=== PATIENT | female | born 1990 | race Two or more races ===

== ENCOUNTER 2025-03-05 17:47 | Inpatient (IN) | payer MEDICAID, SELFPAY ==
[2025-03-05] VITALS (7 sets, daily range): BP systolic 96–140; BP diastolic 61–93; PULSE 78–129; RESP 16–19; TEMP 37–37.3; O2SAT 99–100; BMI 26.6
--- NOTE | 2025-03-05 17:54 | PC.NURSE ---
PT HERE WITH C/O NUMBNESS AND WEAKNESS TO LEFT ARM SINCE 1545 TODAY. ALSO C/O CHEST PAIN ON LEFT SIDE SINCE YESTERDAY. PT UNABLE TO LIFT UP LEFT ARM AND UNABLE TO KEEP LEFT ARM UP WHEN LIFTED BY NURSE. LEFT FACIAL DROOP NOTED AND SIGHT SLURRING OF SPEECH. DR. AUGUSTINE IN OLD TRIAGE ROOM TO TALK WITH PT
--- NOTE | 2025-03-05 17:58 | PC.NURSE ---
1743, AFTER BEING TOLD SYMPTOMS IN TRIAGE AND COMPLETING STROKE ASSESSMENT, THIS RN NOTIFIED CHARGE AND MD, PRIOR TO FINISHING TRIAGE, STROKE ALERT WAS CALLED AT [phone]
--- NOTE | 2025-03-05 17:59 | PC.NURSE ---
PT NOW HAVING C/O NUMBNESS AND WEAKNESS TO LEFT LEG WITH TRANSFERRING FROM WHEELCHAIR TO CT BED.
--- NOTE | 2025-03-05 18:00 | EKG_ITS ---
[facility] Test Date: 2025-03-05 Pat Name: ALON MCFARLANE Department: Room: - Gender: Female Business Development Officer: : 1990 Requested By: John Cantu Order Number: [id number] Reading MD: John Cantu Measurements Intervals [place] Rate: 115 P: 47 NE: 173 QRS: 12 QRSD: 84 T: -16 QT: 319 QTc: 442 Interpretive Statements SINUS TACHYCARDIA ABNORMAL RHYTHM ECG Compared to ECG 04/26/2018 20:11:05 Sinus rhythm no longer present /store/S0/[id number].pdf
--- NOTE | 2025-03-05 18:00 | XR_ITS ---
Examination: CT brain head without contrast. 2-D sagittal coronal reconstructions Date and time of exam:March 05, 2025, 1804 hours INDICATIONS: Stroke alert, onset left-sided body weakness upper and lower extremity beginning 2 hours ago CTDI: vol (mGy):50.2 DLP: (mGycm):1017 Technique: Multiple CT axial sections of the brain have been obtained, 5 mm slice thickness. Contrast has not been administered. 2-D sagittal, coronal reconstructions have been obtained Low dose protocols were performed. One or more of the following dose reduction techniques were used; automated exposure control, adjustment of the mA and/or KV according to patient size, use of iterative reconstruction technique. Findings: No significant ventricular enlargement. Intra-axial or extra-axial hemorrhage density is not seen. No mass effect or midline shift Basal cisterns are not remarkable. Fourth ventricle is midline. Cranial vault intact. Impression: Negative for acute hemorrhage, mass effect or midline shift As clinically warranted, consider brain MRI follow-up to assess for demyelinating disease, acute ischemic change
--- NOTE | 2025-03-05 18:00 | XR_ITS ---
Examination: CTA carotids with intravenous contrast CTA brain, head with intravenous contrast. 2-D sagittal, coronal reconstructions. 3-D reconstructions. Exam date and time: March 05, 2025, 1810 hours INDICATIONS: Stroke alert, onset left-sided body weakness beginning 2 hours ago CTDI: vol (mGy) 62.3 DLP: (mGycm) 510 Technique: Multiple CTA axial brain, head carotid images post intravenous contrast injection 75 cc, Isovue-370. 2-D sagittal, coronal reconstructions. 3-D reconstructions, 3-D post processing including vascular maximum intensity projection images. Low dose protocols were performed. One or more of the following dose reduction techniques were used; automated exposure control, adjustment of the mA and/or KV according to patient size, use of iterative reconstruction technique. Findings: No significant common carotid carotid bifurcation or internal carotid artery stenoses in the neck Codominant vertebral arteries in the neck with no critical stenoses Intracranial vertebral arteries basilar artery and posterior cerebral branches fill with double conclusions Juxtasellar supraclinoid portions internal carotid arteries, M1 segments middle cerebral arteries and middle cerebral artery trifurcation vessels fill as well as anterior cerebral arteries IMPRESSION: No significant neck arterial stenoses No cerebral large vessel arterial occlusions
--- NOTE | 2025-03-05 18:00 | PC.NURSE ---
TELENEUROLOGIST DR. FOUNTAIN TALK ASSESSING PT WHILE IN CT TELENEUROLOGIST TALKING WITH PT ABOUT TKN MEDICATION FOR STROKES. MD TALKING ABOUT RISKS AND BENEFITS AND TELLING PT SHE DOES NOT NEED TO DECIDE NOW BUT WILL NEED TO DECIDE SOON UE TO MEDICATION BEING TIME SENSITIVE. PT THINKING ABOUT MEDICATION
--- NOTE | 2025-03-05 18:01 | XR_ITS ---
Examination: AP chest single view TECHNIQUE: AP portable upright chest single view Date and time: March 05, 2025 1856 hours INDICATIONS: Chest pain and shortness of breath and injury days ago FINDINGS: Normal heart size. No pneumonia or pulmonary edema. Mild osteopenia IMPRESSION: No active disease
--- NOTE | 2025-03-05 18:05 | PC.NURSE ---
LKW 1545, LEFT ARM STARTING TINGLING FEELS LIKE LITTLE ANTS ALL OVER MY ARM , WITH LEFT ARM WEAKNESS, STATES SHE WAS TALKING ON THE PHONE AND HER TONGUE FELT WEIRD LIKE SHE COULDN'T SPEAK RIGHT. PT HAS LEFT SIDED FACIAL DROOP.
--- NOTE | 2025-03-05 18:11 | PD.EDNEURO ---
Neuro Symptoms Deficit-RME/HPI General Chief Complaint: Neuro Symptoms/Deficit Stated Complaint: CHEST PAIN, LEFT ARM TINGLING Time Seen by Provider: 03/05/25 17:59 Arrival date/time: 03/05/25 17:47 RME / HPI RME / HPI Narrative: This section includes all my notes and documentations, including HPI, PE, and ED course. John Mcbride MD HPI: 34 y/o female with Hx of Anxiety presents to ED c/o left arm numbness and tingling, left-sided facial droop, left arm weakness, and chest pain (9/10) x approximately 3 hours ago. LKWT is 3:45 PM. The chest pain started yesterday, over 24 hours ago. No speech or visual impairment. No other complaints. ROS: All negative except as documented in HPI. Physical Exam: General: Alert and oriented. No acute distress. Eyes: Conjunctivae and lids clear. EOMI. PERRL. ENT: No nasal congestion. Pharynx normal. Tympanic membrane normal bilaterally. Neck: Supple. No carotid bruit. No JVD. Heart: RRR. Lungs: No respiratory distress. Good air movement. No rhonchi, wheezing, rales. Chest: No tenderness. Abdomen: Soft and nontender. Legs: No clubbing, cyanosis, edema. Skin: Warm and dry. Neuro: Alert and oriented X 3. Cranial Nerves II-XII grossly intact. No peripheral motor deficits. I reviewed all diagnostic test results: My interpretation of the EKG is sinus rhythm with no acute ST?T changes. My interpretation of the chest x-ray is: NAD. My review of the Head CT report is NAD. My review of the Head/Neck CTA report is NAD. My review of the Chest/Abdomen/Pelvis CTA report is NAD. Blood tests unremarkable. At this point, diagnoses include: Chest pain, Stroke-like symptoms. Treatment here included: IV fluid, Aspirin, Plavix. I discussed the case with our telehealth neurologist. About the presentation and exam and diagnostics and treatments here. Patient declined TNK. Recommended admission for further care. I discussed the case with our hospitalist.? About the presentation and exam and diagnostics and treatments here.? And need of further care in the hospital.? Will accept the patient. John Mcbride MD Related Data Home Medications ?Medication ?Instructions ?Recorded ?Confirmed vits no.124-ferrous fum 1 tab PO QDAY 09/17/18 12/04/18 27 mg iron-folic acid 800 mcg tablet ( Vitamin) Allergies Allergy/AdvReac Type Severity Reaction Status Date / Time PORK MEAT/RASH Allergy Intermediate Anaphylaxis Uncoded 03/05/25 18:03 Review of Systems Review of Systems Systems Reviewed: All systems reviewed, normal except as documented Past Medical History Past Medical History REPRODUCTIVE: Positive Previous Pregnancies PSYCHO/SOCIAL: Positive Anxiety OTHER HISTORY: Positive Hospitalization (CHILDBIRTH) ED Exam Narrative Physical exam: Refer to HPI above Course Course Course Narrative: CXR is ordered for determining the etiology of shortness of breath. Quality Measures none Orders Category Date Time Status Bedside Blood Glucose NOW Care 03/05/25 18:00 Active COVID-19 Screening Questionnaire NOW Care 03/05/25 19:[address] Screening NOW Care 03/05/25 18:21 Active Voucher Clerk NOW Care 03/05/25 18:00 Active Continuous Pulse Oximetry NOW Care 03/05/25 18:00 Completed Decision to Admit X1 Care 03/05/25 19:47 Active EKG (ED ONLY) *Do not use* NOW Care 03/05/25 18:00 Completed In and Out Catheter NEEDED Care 03/05/25 18:00 Active Insert IV NOW Care 03/05/25 18:00 Active NIH Stroke Scale now Care 03/05/25 18:00 Active NPO NOW Care 03/05/25 18:00 Active Nurse Swallow Screen x1 Care 03/05/25 18:00 Active Consult to Neurology / Tele-Neurology Routine Cons 03/05/25 18:[address] angio chest abdomen pelvis Stat Exams 03/05/25 18:[address] angio stroke protocol Stat Exams 03/05/25 18:[address] stroke protocol Stat Exams 03/05/25 18:00 Completed EKG (ED Only) Stat Exams 03/05/25 18:00 Draft XR chest 1V portable Stat Exams 03/05/25 18:01 Completed Alcohol, Blood Medical Stat Lab 03/05/25 17:57 Completed Arterial Blood Gas Stat Lab 03/05/25 18:00 Ordered B-Type Natriuretic Peptide Stat Lab 03/05/25 17:57 Completed CBC Stat Lab 03/05/25 17:57 Completed Comprehensive Metabolic Panel Stat Lab 03/05/25 17:57 Completed Drug Screen,Urine Stat Lab 03/05/25 18:00 Ordered Free T4 (Free Thyroxine) Stat Lab 03/05/25 17:57 Completed Magnesium Stat Lab 03/05/25 17:57 Completed Partial Thromboplastin Time Stat Lab 03/05/25 17:57 Completed Prothrombin Time with INR Stat Lab 03/05/25 17:57 Completed TSH [Thyroid Stimulating Hormone] Stat Lab 03/05/25 17:57 Completed Troponin I Stat Lab 03/05/25 17:57 Completed Urinalysis Stat Lab 03/05/25 18:00 Ordered Aspirin Chew Med 03/05/25 18:51 Discontinued 324 mg PO X1 ONE Clopidogrel [Plavix] Med 03/05/25 18:51 Discontinued 300 mg PO X1 ONE Labetalol IV [Trandate IV] Med 03/05/25 18:00 Active 10 mg IVP Q15M PRN Ondansetron Inj [Zofran Inj] Med 03/05/25 18:00 Active 4 mg IVP Q4HR PRN Sodium Chloride 0.9% 1000 ml [Ns] 1,000 ml Med 03/05/25 18:00 Active IV Q10H Tenecteplase Inj [TNKase Inj] Med 03/05/25 18:33 Discontinued 50 mg .ROUTE .STK-MED ONE Oxygen Delivery NOW RT 03/05/25 18:00 Active Vital Signs Vital signs: Vital Signs Pulse Rate 129 H 03/05/25 17:55 Respiratory Rate 16 03/05/25 17:55 Blood Pressure 96/61 03/05/25 17:55 Pulse Oximetry (%) 100 03/05/25 17:55 Oxygen Delivery Method Room Air 03/05/25 17:55 Neuro Symptoms / Deficit MDM Narrative MDM Narrative:: Scribe Attestation: I, Mayi Vallecillo am scribing for and in the presence of Dr. Mcbride. Provider Notation: Although this document has been carefully reviewed, there may still be some phonetic and other typographical errors.? These errors are purely grammatical due to imperfections in the software program and should not be construed in any way to? compromise the substance of the patient's medical care during this visit. 34 y/o female with Hx of Anxiety presents to ED c/o left arm numbness and tingling, left-sided facial droop, and chest pain, 9/10 x approximately 3 hours. LKWT is 3:45 PM. Patient had no chest pain yesterday. No other complaints. Patient data External records reviewed:: [facility] previous records (No recent ED records available for review.) Clinical information provided by:: patient Social determinants that could affect healthcare access:: none Patient has the following chronic illnesses:: Anxiety How is presenting disease/condition affected by chronic disease/condition?: uneffected by Evaluation data The following diagnostics were reviewed and interpreted by me:: lab results, radiology exam(s) and EKG tracing(s) Lab and/or radiology exams considered but not ordered:: None Interpretation Summary: I reviewed all diagnostic test results: My interpretation of the EKG is sinus rhythm with no acute ST?T changes. My interpretation of the chest x-ray is: NAD. My review of the Head CT report is NAD. My review of the Head/Neck CTA report is NAD. My review of the Chest/Abdomen/Pelvis CTA report is NAD. Blood tests unremarkable. Medications / Prescriptions Medications or Prescriptions considered but not ordered:: None Medication administrations:: Medication Administration History Sodium Chloride (Ns) 1,000 mls @ 100 mls/hr IV Q10H SONDRA Stop: 04/04/25 17:59 Last Admin: 03/05/25 19:01 Dose: 100 mls/hr Documented By: DOMENICA Labetalol HCl (Labetalol Inj 5 Mg/Ml Vial 20 Ml) 10 mg IVP Q15M PRN PRN Reason: HYPER Ondansetron HCl (Ondansetron Inj 2 Mg/Ml Inj 2 Ml) 4 mg IVP Q4HR PRN PRN Reason: NAUSEA OR VOMITING Stop: 04/04/25 17:59 Discontinued Medications Aspirin (Aspirin 81 Mg Chew) 324 mg PO X1 ONE Stop: 03/05/25 18:52 Last Admin: 03/05/25 19:19 Dose: 324 mg Documented By: DOMENICA Clopidogrel Bisulfate (Clopidogrel Bisulfate 75 Mg Tablet) 300 mg PO X1 ONE Stop: 03/05/25 18:52 Last Admin: 03/05/25 19:17 Dose: 300 mg Documented By: DOMENICA Tenecteplase (Tenecteplase Inj 50 Mg Vial) Confirm Administered Dose 50 mg .ROUTE .STK-MED ONE Stop: 03/05/25 18:34 Last Admin: 03/05/25 19:32 Dose: Not Given Documented By: DOMENICA Non-Admin Reason: Patient Refused IV fluid, Aspirin, Plavix. Consultations Consultation(s) initiated? (list below): Yes Consultation #1 (Physician, Specialty, Details): I discussed the case with our telehealth neurologist. About the presentation and exam and diagnostics and treatments here. Patient declined TNK. Recommended admission for further care. Time: 18:00 Diagnosis Neuro Differential Diagnosis: carpal tunnel syndrome, convulsions, delirium, subarachnoid hemorrhage, peripheral neuropathy, cerebrovascular accident, multiple sclerosis and transient cerebral ischemia Most likely diagnosis given after review of the tests above:: Chest pain, Stroke-like symptoms Admission Indicated Admission indicated?: indicated Explain why admission is indicated or not indicated:: Chest pain, stroke-like symptoms Admission Request Was there a request for admission?: Yes Admission Attestation Admission request attestation: Discussed case with Hospitalist service regarding admission. Discussed patients ED course, exam findings, labs, and radiology results. The Hospitalist [agrees] to accept the patient for admission. Disposition Plan Disposition Plan: Admit Discharge Plan Plan Patient Disposition: Admit Acute Care w/in Hospital Prescriptions/Referrals Prescriptions/Med Rec: No Action Vitamin 27 mg iron- 800 mcg Tablet 1 tab PO QDAY Problem List Clinical Impression: Stroke-like symptoms, Chest pain Patient/Caregiver Discharge Instructions Print Language: Kenyan Stand Alone Forms: Estrella Award Info., Patient Portal Info Letter
--- NOTE | 2025-03-05 18:18 | PC.NURSE ---
ROLF ASH TALKING TO DR. AUGUSTINE ABOUT NEED FOR CT OF CHEST DUE TO C/O CHEST PAIN ALSO. WILL GET CT OF CHEST/ABD/PELVIS ALSO
--- NOTE | 2025-03-05 18:20 | XR_ITS ---
Examination: CTA chest, with intravenous contrast. CTA abdomen, with intravenous contrast. CTA pelvis, with intravenous contrast. 2-D sagittal and coronal reconstructions. 3-D reconstructions. Date and time of exam: March 05, 2025 1829 hours INDICATIONS: Upper and lower chest pain, shortness of breath, extremities weakness on the left side today CTDI vol (mgy) 10.1 DLP (MGycm) 588 Technique: Multiple CTA images, 2.0 mm slice thickness, obtained chest, abdomen, pelvis, with the high-resolution 64 slice scanner. 75 cc Isovue-370 is administered intravenously. Sagittal and coronal 2-D reconstructions are obtained. 3-D reconstructions, angiographic images are obtained. 3-D postprocessing, including vascular maximum intensity projections. Low dose protocols were performed. One or more of the following dose reduction techniques were used; automated exposure control, adjustment of the mA and/or KV according to patient size, use of iterative reconstruction technique. Findings: No thoracic aortic aneurysm dilatation or dissection Pulmonary artery opacification is not optimum, no pulmonary artery filling defects are noted No pneumonia, pulmonary edema or pleural disease No liver or splenic lesion No gallstones No pancreatic or adrenal mass No hydronephrosis Normal appendix Abdominal aorta is intact, nonenlarged node dissection No bowel obstruction Anteverted uterus with intrauterine device satisfactory position Urinary bladder is intact Osseous structures intact IMPRESSION: No thoracic aortic or abdominal aortic aneurysmal dilatation or dissection Negative for pulmonary artery emboli No pneumonia, pulmonary edema, pleural disease or pulmonary nodules Normal appendix No acute process in the abdomen or pelvis Given the patient's presentation, consider brain MRI MRA without contrast follow-up
--- NOTE | 2025-03-05 18:25 | PRELIM_ITS ---
CT scan of the head without intravenous contrast (axial sections with sagittal and coronal reformats) March 05, 2025 1803 hours Clinical History: Focal neuro deficit, stroke suspected Findings: No evidence of intracranial hemorrhage, mass effect or midline shift. The ventricles and CSF spaces are unremarkable. The calvarium is unremarkable. The mastoid air cells and the visualized paranasal sinuses are clear. Impression: No evidence of intracranial hemorrhage, mass effect or midline shift. If there are persistent clinical symptoms or additional clinical concerns, consider MRI. Report Electronically Signed By: Ketty Paulino 03/05/2025 6:24:47 PM [EST]
[2025-03-05 18:34] LABS: Basophils # (Auto) 0.1 Thou/mm3 (0.0-0.2); Basophils % (Auto) 1 % (0-2.5); Eosinophils # (Auto) 0.2 Thou/mm3 (0.0-0.5); Eosinophils % (Auto) 1 % (0-10); Hematocrit 35.2 % (36.0-46.0); Hemoglobin 11.6 g/dL (12.0-16.0); Immature Granulocytes % (Auto) 0 % (0-0); Immature Granulocytes Auto 0.02 Thou/mm3 (0.00-0.00); Lymphocytes # (Auto) 2.4 Thou/mm3 (1.0-4.8); Lymphocytes % (Auto) 20 % (10-50); Mean Corpuscular Hemoglobin 26.1 pg (25.0-35.0); Mean Corpuscular Volume 79 fL (80-100); Monocytes % (Auto) 8 % (0-12); Neutrophils # (Auto) 8.2 Thou/mm3 (1.8-7.7); Neutrophils % (Auto) 69 % (37-80); Nucleated Red Blood Cell % 0 /100 WBC (0); Platelet Count 368 Thou/mm3 (140-440); RDW Standard Deviation 42.8 fL (36.4-46.3); Red Blood Count 4.44 Miln/mm3 (4.00-5.20); White Blood Count 11.9 Thou/mm3 (3.6-11.0)
--- NOTE | 2025-03-05 18:45 | PC.NURSE ---
TELENEUROLOGIST TALKING WITH PT FOR LAST 10 MINUTES ABOUT HER SYMPTOMS AND HIS RECOMMENDATION ABOUT BEING GIVEN TNK FOR HER STROKE SYMPTOMS. DR. FOUNTAIN EXPLAINED RISKS AND BENEFITS TO PT MULTIPLE TIMES AND PT INITIALLY STATED I'M SCARED, THEN STARTED SHAKING HER HEAD NO. FINALLY PT STATED SHE DID NOT WANT THE MEDICATION. DR. FOUNTAIN TOLD PT THAT WITHOUT THE MEDICATION SHE MIGHT GET BETTER BUT THAT WITHOUT THE MEDICATION SHE COULD GET WORSE AND NOT RECOVER FROM CURRENT SYMPTOMS. PT CONTINUES TO REFUSE THE MEDICATION AND HAS BEEN TOLD THAT THE MEDICATION IS TIME SENSATIVE AND CAN NOT BE GIVEN AFTER A CERTAIN TIME. PT REFUSING TNK MEDICATION.
--- NOTE | 2025-03-05 18:57 | PD.TNEURO ---
Tele Neuro Consultation Consultation Date 03/05/25 Most Recent Vital Signs Last Vital Signs Pulse 111 H 03/05/25 18:48 Resp 18 03/05/25 18:41 BP 138/82 H 03/05/25 18:42 Pulse Ox 100 03/05/25 18:41 O2 Del Method Room Air 03/05/25 18:41 Consultation Narrative [facility] Tele[facility]urology Consult Services Patient Name:???Odessa Callahan Date of :???1990 Identification Number:??? Date of Service:???03/05/2025 17:52:37 Diagnosis:?I63.89 - Cerebrovascular accident (CVA) due to other mechanism ([facility]) Impression: ?34 y/o F, without significant medical history, presenting to hospital with chest pain, left-sided numbness and weakness, left-sided symptoms started at 3:45 PM. On examination, NIHSS 6 (mild left facial droop, reduced sensation throughout the left side, LUE drift to bed, LLE drift). NCHCT did not show acute abnormalities. I had lengthy discussion with patient about my concern for stroke, and treatment option of tenecteplase. We discussed the benefit of medication, which is an increased chance of recovery from potentially disabling stroke. We also discussed the risks of medication, including 5-6% risk of major hemorrhage, 2-4% risk of ICH, which could be life-threatening. Patient initially indecisive, and nervous about the risks of medication. We proceeded with CTA chest/abdomen/pelvis to exclude aortic dissection given her chest pain, along with CTA head/neck to exclude LVO. These studies on my review did not suggest aortic dissection or critical neurovascular abnormalities. I re-evaluated patient after studies, she continued to demonstrate left-sided deficits, discussed with her again about tenecteplase, benefits and risks as described above. Ultimately, patient declined medication due to the potential risk. I did discuss with her risks of not getting medication, including lower chance of recovery if this is a stroke, and even a chance that symptoms could worsen. She continued to decline the medication. I discussed with her that should she change her mind, to let someone know immediately. ? ?At this time, recommend admission to hospital for monitoring and further evaluation. Our recommendations are outlined below. Recommendations: ? Stroke/Telemetry Floor ? Neuro Checks ( Sign Out: ? Discussed with Emergency Department Provider Advanced Imaging:CTA Head and Neck Completed. LVO:No Patient is not a candidate for AJ Metrics: Last Known Well: 03/05/2025 15:45:00 Dispatch Time: 03/05/2025 17:52:37 Arrival Time: 03/05/2025 17:47:00 Initial Response Time: 03/05/2025 17:58:04Symptoms: left-sided weakness, numbness; chest pain. Initial patient interaction: 03/05/2025 18:05:12 NIHSS Assessment Completed: 03/05/2025 18:06:58Patient is not a candidate for Thrombolytic. Thrombolytic Medical Decision: 03/05/2025 18:46:54Patient was not deemed candidate for Thrombolytic because of following reasons: Patient/Family declined . CT Head: I personally reviewed all the CT images that were available to me and it showed: no acute intracranial abnormalities Primary Provider Notified of Diagnostic Impression and Management Plan on: 03/05/2025 18:51:02 History of Present Illness:Patient is a 34 year old Female. Patient was brought by private transportation with symptoms of left-sided weakness, numbness; chest pain. Patient is able to provide history. She reports onset of symptoms at 3:45 PM, at which time she began to experience, paresthesias of the left arm, which gradually worsened to weakness, later also experienced facial droop, while in the ER her left leg became weak. Also reports having chest pain through the day, and in general has had higher level of anxiety. ? Past Medical History: ?There is no history of Hypertension ?There is no history of Diabetes Mellitus ?There is no history of Hyperlipidemia ?There is no history of Atrial Fibrillation ?There is no history of Coronary Artery Disease ?There is no history of Stroke Medications: No Anticoagulant use? No Antiplatelet use Reviewed EMR for current medications Allergies:? Reviewed Social History: Drug Use: No Family History: There is no family history of premature cerebrovascular disease pertinent to this consultation ROS : 14 Points Review of Systems was performed and was negative except mentioned in HPI. Past Surgical History: There Is No Surgical History Contributory To Today?s Visit ? Examination: BP(96/61),?Pulse(129), 1A: Level of Consciousness - Alert; keenly responsive?+ 0 1B: Ask Month and Age - Both Questions Right?+ 0 1C: Blink Eyes & Squeeze Hands - Performs Both Tasks?+ 0 2: Test Horizontal Extraocular Movements - Normal?+ 0 3: Test Visual Brandon - No Visual Loss?+ 0 4: Test Facial Palsy (Use Grimace if Obtunded) - Minor paralysis (flat nasolabial fold, smile asymmetry)?+ 1 5A: Test Left Arm Motor Drift - Drift, hits bed?+ 2 5B: Test Right Arm Motor Drift - No Drift for 10 Seconds?+ 0 6A: Test Left Leg Motor Drift - Drift, hits bed?+ 2 6B: Test Right Leg Motor Drift - No Drift for 5 Seconds?+ 0 7: Test Limb Ataxia (FNF/Heel-[place]rev[place]) - No Ataxia?+ 0 8: Test Sensation - Mild-Moderate Loss: Less Sharp/More Dull?+ 1 9: Test Language/Aphasia - Normal; No aphasia?+ 0 10: Test Dysarthria - Normal?+ 0 11: Test Extinction/Inattention - No abnormality?+ 0 NIHSS Score:?6 NIHSS Free Text :?mild left lower facial droop ?reduced sensation through the left side Pre-Morbid Modified [place] Scale:0 Points = No symptoms at all Spoke with :?Dr. Mcbride This consult was conducted in real time using interactive audio and video technology. Patient was informed of the technology being used for this visit and agreed to proceed. Patient located in hospital and provider located at home/office setting. Patient is being evaluated for possible acute neurologic impairment and high probability of imminent or life-threatening deterioration. I spent total of 58 minutes providing care to this patient, including time for face to face visit via telemedicine, review of medical records, imaging studies and discussion of findings with providers, the patient and/or family. Dr Gilbert Garcia [facility] For Inpatient follow-up with [facility] physician please call [facility] at . As we are not an outpatient service for any post hospital discharge needs please contact the hospital for assistance. If you have any questions for the [facility] physicians or need to reconsult for clinical or diagnostic changes please contact us via [facility] at . ?
[2025-03-05 18:58] LABS: Alanine Aminotransferase 11 U/L (10-49); Albumin, Serum 4.8 gm/dL (3.5-5.0); Albumin/Globulin Ratio 1.7 (1.2-2.2); Alcohol, Blood Medical < 3.0 mg/dL (0-10.0); Alkaline Phosphatase 90 U/L (46-116); Anion Gap 13 (7-16); BUN/Creatinine Ratio 11 Ratio (12-20); Bilirubin,Total 0.3 mg/dL (0.3-1.2); Blood Urea Nitrogen 9 mg/dL (9-23); Calcium 9.3 mg/dL (8.3-10.6); Calcium (Corrected) 9.3 mg/dL (8.5-10.1); Carbon Dioxide 23.2 mMol/L (20.0-31.0); Chloride 106 mMol/L (98-107); Creatinine (Component) 0.8 mg/dL (0.6-1.3); Free T4 (Free Thyroxine) 1.22 ng/dL (0.89-1.76); Globulin 2.8 gm/dL (2.3-3.5); Glucose 97 mg/dL (74-106); Osmolality,Calculated 281 (275-295); Potassium 3.5 mMol/L (3.4-5.1); Sodium 142 mMol/L (136-145); Thyroid Stimulating Hormone 1.73 uIU/mL (0.55-4.78); Total Protein 7.6 gm/dL (5.7-8.2); Troponin I < 0.002 ng/mL (0.0-0.045); eGFR > 60 See Note
[2025-03-05] MEDS: SODIUM CHLORIDE 0.9% 1000 ML 1,000 ML 100 ML IV (19:01)
[2025-03-05 19:14] LABS: Partial Thromboplastin Time 30.2 Seconds (22.0-36.0); Prothrombin Time 10.6 Seconds (9.0-12.2)
[2025-03-05] MEDS: CLOPIDOGREL BISULFATE 75 MG TABLET 300 MG PO (19:17)
[2025-03-05 19:19] LABS: B-Type Natriuretic Peptide < 20 pg/mL (0-100)
[2025-03-05] MEDS: ASPIRIN 81 MG CHEW 324 MG PO (19:19)
[2025-03-05 20:44] LABS: Base Excess -2 (-3-3); HCO3 23 mEq/L (20-26); Inspired Oxygen, FIO2 21 %; O2 Saturation 98 % (91-98); PCO2 36 mmHg (32.0-48.0); PO2 86 mmHg (83-108); pH, Arterial 7.41 (7.35-7.45)
[2025-03-05 20:47] LABS: Allen Test Performed/OK; Puncture Site Right Radial
[2025-03-05 20:49] LABS: Collection Type, Urine Clean Catch
[2025-03-05 21:06] LABS: Amphetamine/Methamp Scrn,U Negative (Negative); Barbiturate Screen,Urine Negative (Negative); Benzodiazepines Screen,Urine Negative (Negative); Benzoylecgonine Screen, Ur Negative (Negative); Fentanyl Screen,Urine Negative (Negative); Opiate Screen,Urine Negative (Negative); THC Screen,Urine Negative (Negative)
[2025-03-05 21:15] LABS: Bilirubin,Urine Negative (Negative); Blood,Urine Negative (Negative); Clarity,Urine Clear (Clear/Hazy); Color,Urine Colorless (Lt Yel-Yel); Glucose, Urine Negative (Negative); Ketones,Urine Negative (Negative); Leukocyte Esterase,Urine Positive (Negative); Nitrite,Urine Negative (Negative); PH,Urine 7.5 (5.0-7.0); Protein,Urine Negative (Neg - Trace); RBC,Urine 5 /hpf (0-3); Specific Gravity,Urine 1.039 (1.001-1.035); Squamous Epithelial Cell,Urine 9 /hpf (0-5); Urobilinogen,Urine Negative mg/dL (0.0-1.0); WBC,Urine 164 /hpf (0-5)
--- NOTE | 2025-03-05 21:35 | ESHP_ITS ---
Documentation for date of: 03/05/25 HPI History of Present Illness Chief complaint: left sided weakness History of present illness: Patient is 34 years old female with past medical history of anxiety presented to the ED due to left-sided weakness and chest pain. Patient reported she started developing chest pain over the last several weeks and it worsened yesterday significantly. The chest pain is associated with anxiety, she cannot say what makes pain worse or better. 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 Stroke alert was called and patient was evaluated by teleneurology, she was in the window for tPA administration however refused due to potential side effects. She denies any drug use, alcohol use or tobacco use. She was previously prescribed medication for anxiety but discontinued herself due to unpleasant affect. She denies any prior history of similar symptoms. She denies any shortness of breath, abdominal pain, dysuria symptoms. On admission her blood pressure 96/61, pulse 129, respirations 16, temperature 99.2 ?F, oxygen saturation 100% on room air. Labs showed WBCs 11.9, hemoglobin 11.6, MCV 79, negative troponin. Urinalysis showed RBCs 5, WBCs 164, epithelial cells 9, positive leukocyte esterase. U tox was negative. Head CT, head neck CTA did not reveal any abnormalities. Chest x-ray was negative. Chest abdomen pelvis CTA was unremarkable. EKG showed sinus tachycardia at 115. Teleneuro was consulted and patient was admitted for further management and evaluation. NIHSS score 6. PMH: Anxiety. PSH: None. SH: Denies using drugs, smoking tobacco or drink alcohol. FH: Unremarkable. Allergies: NKA. Medications: None. Review of Systems Review of Systems Systems Reviewed: All systems reviewed, normal except as documented Exam Vital Signs Temp Pulse Resp BP Pulse Ox O2 Del Method 99.2 F 102 H 19 124/93 H 100 Room Air 03/05/25 19:47 03/05/25 19:47 03/05/25 19:47 03/05/25 19:47 03/05/25 19:47 03/05/25 19:47 Narrative Exam Gen: Well-developed and well-nourished female. HEENT: NCAT, PERRLA, EOMI, MMM, anicteric conjunctivae, tongue is deviated to the right however able to move into the left side when asked. CVS: normal S1 and S2. RRR. No M/R/G. Resp: CTA B/L. No rhonchi, rales, crackles or wheezing. Abd: soft, mild suprapubic tenderness, non-distended. BS+ in all 4 quadrants. MSK: Good ROM in BUE & BLE. No edema or rash. Neuro: CN II-XII grossly intact. Strength 5/5 in RUE & RLE. Strength 4/5 in LUE & LLE. Alert and oriented x3. Psych: Appears quiet and minimally engaged in conversation. Results: Labs 03/05/25 17:57 03/05/25 17:57 Labs: Short CBC 03/05/25 Range/Units 17:57 WBC 11.9 H (3.6-11.0) Thou/mm3 Hgb 11.6 L (12.0-16.0) g/dL Hct 35.2 L (36.0-46.0) % Plt Count 368 (140-440) Thou/mm3 BMP 03/05/25 17:57 Sodium 142 Potassium 3.5 Chloride 106 Carbon Dioxide 23.2 BUN 9 Creatinine 0.8 Glucose 97 Calcium 9.3 Cardiac Enzymes 03/05/25 Range/Units 17:57 Troponin I < 0.002 (0.0-0.045) ng/mL Liver Function 03/05/25 Range/Units 17:57 Total Bilirubin 0.3 (0.3-1.2) mg/dL ALT 11 (10-49) U/L Alkaline Phosphatase 90 (46-116) U/L Albumin 4.8 (3.5-5.0) gm/dL Urine 03/05/25 Range/Units 20:16 Urine Color Colorless A (Lt Yel-Yel) Urine Clarity Clear (Clear/Hazy) Urine pH 7.5 H (5.0-7.0) Ur Specific [place] 1.039 H (1.001-1.035) Urine Protein Negative (Neg - Trace) Urine Glucose (UA) Negative (Negative) ABG Interpretation ABG results: 03/05/25 20:24 ABG pH 7.41 ABG pCO2 36 ABG pO2 86 ABG HCO3 23 ABG O2 Saturation 98 ABG Base Excess -2 Quality Measures Quality Measures VTE prophylaxis Medications Home Medications and Allergies Home Medications ?Medication ?Instructions ?Recorded ?Confirmed ?Type fluoxetine 10 mg capsule mg 03/06/25 History hydroxyzine HCl 25 mg tablet mg 03/06/25 History Allergies Allergy/AdvReac Type Severity Reaction Status Date / Time PORK MEAT/RASH Allergy Intermediate Anaphylaxis Uncoded 03/05/25 18:03 Visit Medications Enoxaparin Sodium (Enoxaparin Sod Inj 40 Mg/0.4 Ml Syringe) 40 mg SC QDAY [facility]1983 Stop: 03/20/25 08:59 Sodium Chloride (Ns) 1,000 mls @ 100 mls/hr IV Q10H SONDRA Stop: 04/04/25 17:59 Last Admin: 03/05/25 19:01 Dose: 100 mls/hr Labetalol HCl (Labetalol Inj 5 Mg/Ml Vial 20 Ml) 10 mg IVP Q15M PRN PRN Reason: HYPER Ondansetron HCl (Ondansetron Inj 2 Mg/Ml Inj 2 Ml) 4 mg IVP Q4HR PRN PRN Reason: NAUSEA OR VOMITING Stop: 04/04/25 17:59 Discontinued Medications Aspirin (Aspirin 81 Mg Chew) 324 mg PO X1 ONE Stop: 03/05/25 18:52 Last Admin: 03/05/25 19:19 Dose: 324 mg Clopidogrel Bisulfate (Clopidogrel Bisulfate 75 Mg Tablet) 300 mg PO X1 ONE Stop: 03/05/25 18:52 Last Admin: 03/05/25 19:17 Dose: 300 mg Assessment & Plan Plan Patient is 34 years old female with past medical history of anxiety presented to the ED due to left-sided weakness and chest pain, was admitted for further management and evaluation. #Stroke rule out. #Left sided weakness. - presented due to sudden onset of left sided chest pain. - Head CT, head neck CTA did not reveal any abnormalities. - Stroke alert was called and patient was evaluated by teleneurology, she was in the window for tPA administration however refused due to potential side effects. - NIHSS score 6. - in the ED given loading dose aspirin and clopidogrel. - physical exam was inconsistent, her strength in left arm and leg was fluctuating between normal and mild weakness. Plan: - admitted to telemetry. - swallow eval, speech eval, physical therapy. - head of bed 30 degrees. - MRI stroke protocol. - in-house neurology consult ordered. #Chest pain. - On admission her blood pressure 96/61, pulse 129. - Troponin I negative, EKG showed sinus tachycardia with no ST changes. - Chest x-ray was negative. Chest abdomen pelvis CTA was unremarkable. - likely related to her anxiety. #Anxiety. - long standing anxiety, was previously prescribed medication (unknown) but self discontinued due to unpleasant side effects. #Microcytic anemia, mild. - Labs showed hemoglobin 11.6, MCV 79. - consider iron studies and possible iron supplement. #UTI. - Labs showed WBCs 11.9. Urinalysis showed RBCs 5, WBCs 164, epithelial cells 9, positive leukocyte esterase. - Positive suprapubic tenderness. Plan: - Ceftriaxone 1g IV QD. - urine and blood cultures ordered. FEN: regular after swallow eval. DVT prophylaxis: Lovenox. GI prophylaxis: None. Dispo: Telemetry. CODE STATUS: Full code. Plan of care discussed with attending Dr. Ramsey. Zheng Arenas MD, PGY 2. Disclaimer: This note was dictated by speech recognition. Minor errors in trim installer may be present due to voice recognition software. Attending Provider Attestation/Addendum I have examined the patient, reviewed labs and imaging findings, discussed the case with the resident(s), and reviewed entered orders. I agree with the plan of care as outlined in this note, with these additional summaries/recommendations: 34-year-old female with past medical history of anxiety, prediabetes presents to ED with chief complaint of chest pain and left-sided weakness including the face. Stroke alert was called and teleneuro recommended tPA however after detailed discussion patient declined. Recommended admission for further stroke workup. At the time my evaluation, patient still has left-sided facial weakness and upper and lower extremity weakness. Will admit patient for further stroke workup and management. Roland Ramsey MD
[2025-03-05] MEDS: cefTRIAXone/D5w 1gm IV premix 1 GM/50 ML BAG IV (22:35)
--- NOTE | 2025-03-05 23:56 | PC.NURSE ---
DR. COPELAND NOTIFIED PT FAIL NURSE SWALLOW SCREEN, MD WILL ORDER NPO.
[2025-03-06] VITALS (7 sets, daily range): BP systolic 98–125; BP diastolic 54–74; PULSE 69–92; RESP 11–17; TEMP 36.2–36.9; O2SAT 96–100
--- NOTE | 2025-03-06 | XR_ITS ---
Examinations: MRI Brain without intravenous contrast. MRA brain without intravenous contrast. MRA carotids without intravenous contrast 3-D vascular reconstructions Date and time of exam: March 06, 2025 1558 hrs. Indications: Onset left-sided body weakness today Technique: Multiple axial and sagittal images of the brain have been obtained MRA brain carotid images without contrast obtained, including 3-D postprocessing, vascular maximum intensity projection images Findings: Sellaturc[place] is not enlarged. The optic chiasm and infundibular stalk are not remarkable. Prepontine and interpeduncular cisterns are not enlarged. No localized enlargement of the medulla or andrea. Fourth ventricle and cerebellar tonsils normal in position. Subacute hemorrhage is not seen. Fourth ventricle is midline. Mass in the cerebellopontine angle region is not evident. 7th and 8th nerve complexes exhibits symmetry. Globes are symmetrical with no retro-orbital mass. Increased white matter signal not seen Diffusion-weighted images demonstrate no focus of restricted diffusion Mass-effect upon the ventricular system is not identified. MRA carotid images no significant stenoses. MRA brain images no large vessel occlusions Impression: Negative for acute hemorrhage, mass effect or midline shift No acute infarct No MR findings diagnostic for demyelinating disease No cerebral large vessel occlusions
[2025-03-06] MEDS: SODIUM CHLORIDE 0.9% 1000 ML 1,000 ML 100 ML IV ×2 (04:41→15:40)
[2025-03-06 05:46] LABS: Basophils # (Auto) 0.1 Thou/mm3 (0.0-0.2); Basophils % (Auto) 1 % (0-2.5); Eosinophils # (Auto) 0.1 Thou/mm3 (0.0-0.5); Eosinophils % (Auto) 1 % (0-10); Hematocrit 32.2 % (36.0-46.0); Hemoglobin 10.3 g/dL (12.0-16.0); Immature Granulocytes % (Auto) 0 % (0-0); Immature Granulocytes Auto 0.02 Thou/mm3 (0.00-0.00); Lymphocytes # (Auto) 2.2 Thou/mm3 (1.0-4.8); Lymphocytes % (Auto) 23 % (10-50); Mean Corpuscular Hemoglobin 25.9 pg (25.0-35.0); Mean Corpuscular Volume 81 fL (80-100); Monocytes # (Auto) 0.6 Thou/mm3 (0.0-0.8); Monocytes % (Auto) 7 % (0-12); Neutrophils # (Auto) 6.3 Thou/mm3 (1.8-7.7); Neutrophils % (Auto) 67 % (37-80); Nucleated Red Blood Cell % 0 /100 WBC (0); Platelet Count 279 Thou/mm3 (140-440); Red Blood Count 3.98 Miln/mm3 (4.00-5.20); White Blood Count 9.4 Thou/mm3 (3.6-11.0)
[2025-03-06 06:32] LABS: Alanine Aminotransferase 9 U/L (10-49); Albumin, Serum 4.3 gm/dL (3.5-5.0); Albumin/Globulin Ratio 1.9 (1.2-2.2); Alkaline Phosphatase 72 U/L (46-116); Anion Gap 11 (7-16); BUN/Creatinine Ratio 7 Ratio (12-20); Bilirubin,Total 0.5 mg/dL (0.3-1.2); Blood Urea Nitrogen 5 mg/dL (9-23); Carbon Dioxide 22.2 mMol/L (20.0-31.0); Chloride 107 mMol/L (98-107); Creatinine (Component) 0.7 mg/dL (0.6-1.3); Estimated Creatinine Clearance 113.6 mL/min (>60); Globulin 2.3 gm/dL (2.3-3.5); Glucose 100 mg/dL (74-106); Osmolality,Calculated 276 (275-295); Phosphorous 3.1 mg/dL (2.4-5.1); Potassium 3.6 mMol/L (3.4-5.1); Sodium 140 mMol/L (136-145); Total Protein 6.6 gm/dL (5.7-8.2); eGFR > 60 See Note
--- NOTE | 2025-03-06 08:28 | ECHO_ITS ---
Transthoracic Echo Report Ht (in): 65 Wt (lb): 165 Exam Location: Echo Lab Status: Inpatient Asbestos Shingle Inspector: LavellKierra younger Indications: Procedure Performed: BP: 162 / 61 HR: 86 Technical Quality: Technically difficult study MEASUREMENTS (Male / Female) Normal Values 2D ECHO LA Volume Index 14.2 cm?/m? 16 - 28 cm?/m? DOPPLER AV Peak Velocity 143.0 cm/s AV Peak Gradient 8.2 mmHg AV Mean Gradient 4.0 mmHg AV Velocity Time Integral 23.5 cm LVOT Peak Velocity 103.0 cm/s LVOT Peak Gradient 4.2 mmHg LVOT Velocity Time Integral 18.9 cm MV Area PHT 5.5 cm? Mitral E Point Velocity 90.2 cm/s Mitral A Point Velocity 74.7 cm/s Mitral E to A Ratio 1.2 LV E' Lateral Velocity 15.2 cm/s Mitral E to LV E' Lateral Ratio 5.9 LV E' Septal Velocity 12.0 cm/s Mitral E to LV E' Septal Ratio 7.5 FINDINGS Left Ventricle Normal left ventricular size, wall thickness, systolic function with no obvious regional wall motion abnormalities. Normal left ventricular diastolic filling pattern for age. The ejection fraction is visually estimated at 55-60%. Right Ventricle The right ventricle is normal in size and systolic function. Left Atrium The left atrium is normal by two-dimensional, color flow and Doppler imaging with no structural abnormalities, no thrombus formation present. Right Atrium The right atrium is normal by two-dimensional imaging, color flow and Doppler imaging with no structural abnormalities, no thrombus formation present. Atrial Septum The interatrial septum appears normal with no evidence of a shunt. Aorta The aorta is normal by two-dimensional, color flow and Doppler interrogation. Mitral Valve The mitral valve is normal by two-dimensional, color flow and Doppler interrogation. There is no significant mitral valve regurgitation, stenosis or prolapse. Aortic Valve The aortic valve is trileaflet and normal by two-dimensional, color flow and Doppler interrogation. There is no significant aortic valve regurgitation. Tricuspid Valve The tricuspid valve is normal by two-dimensional, color flow and Doppler interrogation. There is no significant tricuspid valve regurgitation. Pulmonic Valve The pulmonic valve is not well visualized. There is no significant pulmonic valve regurgitation. Vessels The pulmonary artery appears normal. The inferior vena cava pulmonary and hepatic veins appear normal. Pericardium The pericardium is normal by two-dimensional imaging. There is no significant pericardial effusion. CONCLUSIONS Indication: Stroke bubble study No evidence of PFO Negative bubble study Normal LV size and function. Normal left ventricular diastolic function. Estimated EF at 55-60%. RV is normal in size and systolic function. Delia Dunlap (Electronically Signed) Final Date: 08 March 2025 17:06
[2025-03-06] MEDS: ENOXAPARIN SOD INJ 40 MG/0.4 ML SYRINGE SC (08:30)
[2025-03-06] MEDS: cefTRIAXone/D5w 1gm IV premix 1 GM/50 ML BAG IV (08:30)
--- NOTE | 2025-03-06 08:30 | ESPR_ITS ---
<Statement entered by Ashley Thomas MD - 03/06/25 14:29> I Ashley Thomas MD reviewed the note and agree with the resident's assessment & plan with exceptions as below. I have personally reviewed labs, imaging, home meds/prior records, examined the patient, formulated and discussed management plan with the IM team. A 34-year-old F with history of anxiety presented with left-sided weakness and had a stroke alert however refused tPA. Currently neurological symptoms have resolved, CT head and CTA head and neck unremarkable however pending MRI and echocardiogram. Started on aspirin and high intensity statin therapy. Potential etiology likely related to TIA. Following MRI, plan to start on DAPT for 3 weeks in case of TIA. Will refer to cardiology on discharge for Holter monitor placement for potential arrhythmias. Documentation for date of: 03/06/25 Subjective Subjective Interval history: Patient was examined bedside this morning , no acute overnight event. Pending MRI of brain to rule out TIA, pending echo. Pending Dr. Aguilera's recommendation. Exam Vital Signs Temp Pulse Resp BP Pulse Ox O2 Del Method 97.5 F 74 17 99/62 100 Room Air 03/06/25 08:00 03/06/25 08:00 03/06/25 08:00 03/06/25 08:00 03/06/25 08:00 03/06/25 08:00 Narrative Exam GENERAL: Comfortable adult seen resting comfortably in hospital bed, no acute distress VITALS: All vitals were reviewed and the pulse ox is 98% on room air HEENT: Normocephalic, atraumatic. Pupils are equal and reactive. Oral mucosa is moist. NECK: Supple, nontender, no JVD CHEST: Symmetrical, atraumatic and with equal expansion ,Nontender on palpation CARDIOVASCULAR: Heart regular rhythm & rate. S1/S2. no murmur or gallop rub or extra beats. LUNGS: Clear to auscultation bilaterally with symmetrical chest rise. No laboring tachypnea or wheezing. No intercostal subcostal retraction. No rales and no rhonchi. ABDOMEN: Soft, flat, nontender to palpation, no guarding or rebound tenderness. Active and normal bowel sounds. EXTREMITIES:Moves all 4 extremities,No B/L LE edema. SKIN: Warm and dry, no jaundice or rashes noted. NEURO: Patient is AO x 3, Cranial nerves II through XII grossly intact. There is no focal neurologic deficits noted. PSYCHIATRIC: Patient is in normal mood, cooperative, no SI or HI or hallucinations. Objective Labs 03/06/25 05:25 03/06/25 05:25 Labs: Laboratory Results - last 24 hr 03/05/25 03/05/25 03/05/25 17:57 20:16 20:24 WBC 11.9 H RBC 4.44 Hgb 11.6 L Hct 35.2 L MCV 79 L MCH 26.1 MCHC 33.0 RDW Std Deviation 42.8 Plt Count 368 Neut % (Auto) 69 Lymph % (Auto) 20 [place] % (Auto) 8 Eos % (Auto) 1 Baso % (Auto) 1 Neut # (Auto) 8.2 H Lymph # (Auto) 2.4 [place] # (Auto) 1.0 H Eos # (Auto) 0.2 Baso # (Auto) 0.1 Immature Gran # (Auto) 0.02 H Absolute Nucleated RBC 0.00 Immature Gran % 0 Nucleated RBC % 0 PT 10.6 INR 1.0 APTT 30.2 Puncture Site Right Radial ABG pH 7.41 ABG pCO2 36 ABG pO2 86 ABG HCO3 23 ABG O2 Saturation 98 ABG Base Excess -2 FiO2 21 Sodium 142 Potassium 3.5 Chloride 106 Carbon Dioxide 23.2 Anion Gap 13 BUN 9 Creatinine 0.8 Estim Creat Clear Calc 98.0 eGFR > 60 BUN/Creatinine Ratio 11 L Glucose 97 Calculated Osmolality 281 Calcium 9.3 Corrected Calcium 9.3 Phosphorus Magnesium 2.0 Total Bilirubin 0.3 ALT 11 Alkaline Phosphatase 90 Troponin I < 0.002 B-Natriuretic Peptide < 20 Total Protein 7.6 Albumin 4.8 Globulin 2.8 Albumin/Globulin Ratio 1.7 TSH 1.73 Free T4 1.22 Ur Collection Type Clean Catch Urine Color Colorless A Urine Clarity Clear Urine pH 7.5 H Ur Specific [place] 1.039 H Urine Protein Negative Urine Glucose (UA) Negative Urine Ketones Negative Urine Blood Negative Urine Nitrite Negative Urine Bilirubin Negative Urine Urobilinogen (Auto) Negative Ur Leukocyte Esterase Positive Urine RBC 5 H Urine WBC 164 H Ur Squamous Epith Cells 9 H Urine Bacteria None Urine Opiates Screen Negative Urine Fentanyl Screen Negative Ur Barbiturates Screen Negative U Amphetamin/Meth Scrn Negative U Benzodiazepines Scrn Negative U Cocaine Metab Screen Negative U Marijuana (THC) Screen Negative Ethyl Alcohol < 3.0 03/06/25 05:25 WBC 9.4 RBC 3.98 L Hgb 10.3 L Hct 32.2 L MCV 81 MCH 25.9 MCHC 32.0 RDW Std Deviation 44.0 Plt Count 279 D Neut % (Auto) 67 Lymph % (Auto) 23 [place] % (Auto) 7 Eos % (Auto) 1 Baso % (Auto) 1 Neut # (Auto) 6.3 Lymph # (Auto) 2.2 [place] # (Auto) 0.6 Eos # (Auto) 0.1 Baso # (Auto) 0.1 Immature Gran # (Auto) 0.02 H Absolute Nucleated RBC 0.00 Immature Gran % 0 Nucleated RBC % 0 PT INR APTT Puncture Site ABG pH ABG pCO2 ABG pO2 ABG HCO3 ABG O2 Saturation ABG Base Excess FiO2 Sodium 140 Potassium 3.6 Chloride 107 Carbon Dioxide 22.2 Anion Gap 11 BUN 5 L Creatinine 0.7 Estim Creat Clear Calc 113.6 eGFR > 60 BUN/Creatinine Ratio 7 L Glucose 100 Calculated Osmolality 276 Calcium 9.0 Corrected Calcium 9.0 Phosphorus 3.1 Magnesium 2.0 Total Bilirubin 0.5 ALT 9 L Alkaline Phosphatase 72 Troponin I B-Natriuretic Peptide Total Protein 6.6 Albumin 4.3 D Globulin 2.3 Albumin/Globulin Ratio 1.9 TSH Free T4 Ur Collection Type Urine Color Urine Clarity Urine pH Ur Specific [place] Urine Protein Urine Glucose (UA) Urine Ketones Urine Blood Urine Nitrite Urine Bilirubin Urine Urobilinogen (Auto) Ur Leukocyte Esterase Urine RBC Urine WBC Ur Squamous Epith Cells Urine Bacteria Urine Opiates Screen Urine Fentanyl Screen Ur Barbiturates Screen U Amphetamin/Meth Scrn U Benzodiazepines Scrn U Cocaine Metab Screen U Marijuana (THC) Screen Ethyl Alcohol ABG Interpretation ABG results: 03/05/25 20:24 ABG pH 7.41 ABG pCO2 36 ABG pO2 86 ABG HCO3 23 ABG O2 Saturation 98 ABG Base Excess -2 Quality Measures Quality Measures VTE prophylaxis Assessment & Plan Assessment Current Active Medications: Generic Name Dose Route Start Last Admin Trade Name Freq PRN Reason Stop Dose Admin Aspirin 81 mg 03/06/25 09:00 Aspirin Ec 81 Mg Tabec PO 04/05/25 08:59 QDAY SONDRA Atorvastatin Calcium 40 mg 03/06/25 21:00 Atorvastatin Calcium 20 Mg Tablet PO 04/05/25 20:59 HS SONDRA Enoxaparin Sodium 40 mg 03/06/25 09:00 Enoxaparin Sod Inj 40 Mg/0.4 Ml Syringe SC 03/20/25 08:59 QDAY SONDRA Sodium Chloride 1,000 mls @ 100 mls/hr 03/05/25 18:00 03/06/25 04:41 Ns IV 04/04/25 17:59 100 mls/hr Q10H SONDRA Administration Ceftriaxone Sodium/Dextrose 1 gm in 50 mls @ 100 mls/hr 03/05/25 22:04 03/05/25 23:20 Rocephin/D5w 1gm Iv Premix IV 03/12/25 22:03 Infused QDAY SONDRA Infusion Labetalol HCl 10 mg 03/05/25 18:00 Labetalol Inj 5 Mg/Ml Vial 20 Ml IVP Q15M PRN HYPER Ondansetron HCl 4 mg 03/05/25 18:00 Ondansetron Inj 2 Mg/Ml Inj 2 Ml IVP 04/04/25 17:59 Q4HR PRN NAUSEA OR VOMITING Plan Patient is 34 years old female with past medical history of anxiety presented to the ED due to left-sided weakness and chest pain, was admitted for further management and evaluation. # TIA vs anxiety #Left sided weakness- resolved - presented due to sudden onset of left sided chest pain. - Head CT, head neck CTA did not reveal any abnormalities. - Stroke alert was called and patient was evaluated by teleneurology, she was in the window for tPA administration however refused due to potential side effects. - NIHSS score 6. - in the ED given loading dose aspirin and clopidogrel. - physical exam was inconsistent, her strength in left arm and leg was fluctuating between normal and mild weakness. - admitted to telemetry. - swallow eval, speech eval, physical therapy. - head of bed 30 degrees. - MRI stroke protocol. - in-house neurology consult ordered. 03/06/2025: no acute overnight event. Pending MRI of brain to rule out TIA, pending echo. Pending Dr. Aguilera's recommendation. Patient most likely had an anxiety attack as per her she has recently increased stress in her work. #Chest pain- resolved - On admission her blood pressure 96/61, pulse 129. - Troponin I negative, EKG showed sinus tachycardia with no ST changes. - Chest x-ray was negative. Chest abdomen pelvis CTA was unremarkable. - likely related to her anxiety. #Anxiety. - long standing anxiety, was previously prescribed medication (unknown) but self discontinued due to unpleasant side effects. #Microcytic anemia, mild. - Labs showed hemoglobin 11.6, MCV 79. - consider iron studies and possible iron supplement. #UTI. - Labs showed WBCs 11.9. Urinalysis showed RBCs 5, WBCs 164, epithelial cells 9, positive leukocyte esterase. - Positive suprapubic tenderness. Plan: - Ceftriaxone 1g IV QD. - urine and blood cultures pending FEN: regular after swallow eval. DVT prophylaxis: Lovenox. GI prophylaxis: None. Dispo: Telemetry. CODE STATUS: Full code. Case discussed with attending Dr. William Patel MD,PGY-3
[2025-03-06] MEDS: ASPIRIN EC 81 MG TABEC PO (09:13)
--- NOTE | 2025-03-06 14:36 | EKG_ITS ---
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
[2025-03-06 16:01] LABS: Troponin I < 0.002 ng/mL (0.0-0.045)
[2025-03-06] MEDS: ATORVASTATIN CALCIUM 20 MG TABLET 40 MG PO (20:30)
[2025-03-06] MEDS: ACETAMINOPHEN 325 MG TABLET 650 MG PO (23:56)
[2025-03-07] VITALS: BP 100/64; PULSE 67; PULSE 70; RESP 20; TEMP 36.8; O2SAT 98
[2025-03-07] MEDS: SODIUM CHLORIDE 0.9% 1000 ML 1,000 ML 100 ML IV (01:18)
--- NOTE | 2025-03-07 01:36 | PC.NURSE ---
Report given to Eden LAUREN MS. pt will be Med Tele to rm [id number].
[2025-03-07 04:00] VITALS: BP 102/60; PULSE 83; PULSE 85; RESP 16; TEMP 36.9; O2SAT 98
[2025-03-07 07:25] LABS: Basophils # (Auto) 0.1 Thou/mm3 (0.0-0.2); Basophils % (Auto) 1 % (0-2.5); Eosinophils # (Auto) 0.2 Thou/mm3 (0.0-0.5); Eosinophils % (Auto) 3 % (0-10); Hematocrit 33.2 % (36.0-46.0); Hemoglobin 10.4 g/dL (12.0-16.0); Immature Granulocytes % (Auto) 0 % (0-0); Immature Granulocytes Auto 0.02 Thou/mm3 (0.00-0.00); Lymphocytes # (Auto) 1.4 Thou/mm3 (1.0-4.8); Lymphocytes % (Auto) 22 % (10-50); Mean Corpuscular HGB Conc 31.3 g/dl (31.0-37.0); Mean Corpuscular Hemoglobin 26.4 pg (25.0-35.0); Mean Corpuscular Volume 84 fL (80-100); Monocytes # (Auto) 0.5 Thou/mm3 (0.0-0.8); Monocytes % (Auto) 8 % (0-12); Neutrophils # (Auto) 4.2 Thou/mm3 (1.8-7.7); Neutrophils % (Auto) 65 % (37-80); Nucleated Red Blood Cell % 0 /100 WBC (0); Platelet Count 288 Thou/mm3 (140-440); RDW Standard Deviation 46.4 fL (36.4-46.3); Red Blood Count 3.94 Miln/mm3 (4.00-5.20); White Blood Count 6.5 Thou/mm3 (3.6-11.0)
[2025-03-07 07:50] VITALS: PULSE 86; RESP 18; RESP 92
[2025-03-07 08:00] VITALS: BP 91/58; PULSE 80; PULSE 86; RESP 17; TEMP 36.6; O2SAT 97
[2025-03-07 08:04] LABS: Alanine Aminotransferase < 7 U/L (10-49); Albumin, Serum 3.9 gm/dL (3.5-5.0); Albumin/Globulin Ratio 1.6 (1.2-2.2); Alkaline Phosphatase 67 U/L (46-116); Anion Gap 10 (7-16); BUN/Creatinine Ratio 9 Ratio (12-20); Bilirubin,Total 0.5 mg/dL (0.3-1.2); Blood Urea Nitrogen 6 mg/dL (9-23); Calcium 8.6 mg/dL (8.3-10.6); Calcium (Corrected) 8.7 mg/dL (8.5-10.1); Carbon Dioxide 24.2 mMol/L (20.0-31.0); Chloride 110 mMol/L (98-107); Creatinine (Component) 0.7 mg/dL (0.6-1.3); Estimated Creatinine Clearance 170.6 mL/min (>60); Globulin 2.4 gm/dL (2.3-3.5); Glucose 96 mg/dL (74-106); Osmolality,Calculated 284 (275-295); Sodium 144 mMol/L (136-145); Total Protein 6.3 gm/dL (5.7-8.2); eGFR > 60 See Note
[2025-03-07] MEDS: ASPIRIN EC 81 MG TABEC PO (08:12)
[2025-03-07] MEDS: ENOXAPARIN SOD INJ 40 MG/0.4 ML SYRINGE SC (08:12)
[2025-03-07] MEDS: cefTRIAXone/D5w 1gm IV premix 1 GM/50 ML BAG IV (08:12)
--- NOTE | 2025-03-07 09:27 | PC.SS ---
Patient Odessa Callahan is a 34 Year old female admitted for Stroke R/O. SS made contact with patient at bedside? to complete initial and discuss discharge disposition. Role and reason for the contact was explained to Patient. Demographic information was verified.? Pt? identified her Sister, Teofilo Callahan as her surrogate decision maker [phone]. She is independent with all ADLs. Patient does not utilize any source of DME, or home O2. Patient?s choice of pharmacy is [facility]. At time of discharge patient will return home, family will provide transportation. Discharge plan: Home Next of Kin: Sister, TEOFILO Callahan PCP: Buddy Norton
--- NOTE | 2025-03-07 10:52 | PC.SS ---
SS follow up note; Patient will discharge back home today.
[2025-03-07 12:00] VITALS: BP 108/66; PULSE 86; RESP 18; TEMP 36.3; O2SAT 98
[2025-03-07] MEDS: ACETAMINOPHEN 325 MG TABLET 650 MG PO (12:28)
--- NOTE | 2025-03-07 15:48 | ESDS_ITS ---
<Statement entered by Tyrone Delacruz MD - 03/19/25 14:04> I reviewed above note and agree with findings and plans. I have also personally examined the patient with medicine team and went over assessment and plan with medical team including procurement intern and resident physician. Planned Discharge Date 03/07/25 DS: Providers Provider Date of admission: 03/05/25 21:25 Primary care physician: Physician No Primary/Family Admitting Provider: Rolnad Ramsey MD Attending Provider on Admission: Roland Ramsey MD Consults: 03/05/25 18:00 Consult to Neurology / Tele-Neurology Routine Comment: Consulting Provider: [facility] 03/05/25 21:27 Consult to Neurology / Tele-Neurology Routine Comment: stroke r/o Consulting Provider: Van Whitney Referral Physical Therapy Routine Comment: Physician Instructions: Referral Speech Therapy Routine Comment: Attending Provider on DC: Tyrone Delacruz MD Discharging Provider: Tyrone Delacruz MD DS: Diagnosis Problem List Completed Was Problem List Reviewed/Reconciled?: Yes Hospital Course Hospital Course Hospital course: Reason for hospitalization: Left-sided weakness 2/2 TIA Odessa Callahan is 34 yr female with PMH of anxiety presented to the ED on 03/06/25 due to left-sided weakness and chest pain, was admitted for further management and evaluation. Head CT, head neck CTA did not reveal any abnormalities. Stroke alert was called and patient was evaluated by teleneurology, she was in the window for tPA administration however refused due to potential side effects. NIHSS score 6. She was given loading dose aspirin and clopidogrel in the ED. Physical exam is inconsistent with strength in left arm and leg fluctuating between normal and mild weakness. MRI negative for any acute changes. Most likely onset of weakness due to underlying anxiety as she admitted to increased stress in her work. Chest pain resolved during hospitalization with negative troponins and EKG showing sinus tachycardia, no ST changes. Patient had mild leukocytosis of 12 with a UA indicating a UTI. She was started on ceftriaxone. Patient is now in stable condition and ready for discharge. Recommendations were given as below. Discharge Recommendations: See your PCP before resuming your fluoxetine if you have not been taking it. Continue taking aspirin and Lipitor for 21 days. Follow up with PCP in 1-2 weeks. If you don't have a PCP, please call [facility] at [phone]. Hospital Diagnoses: #Left sided weakness 2/2 TIA #Chest pain- resolved #Anxiety #Microcytic anemia, mild #UTI The patient's management plan was discussed with my attending physician Dr. Delacruz. Lisa Horn MD, PGY-1 Time Spent with Patient Time attestation: Total time spent providing and/or coordinating discharge services: Time spent: Greater than 30 minutes Exam Vital Signs Temp Pulse Resp BP Pulse Ox O2 Del Method 97.4 F 86 18 108/66 98 Room Air 03/07/25 12:00 03/07/25 12:00 03/07/25 12:00 03/07/25 12:00 03/07/25 12:03/07/25 12:00 Narrative Exam General: Young female, No acute distress, cooperative HEENT: NCAT, No JVD noted. Mucosa moist. Pupils are equal and reactive to light bilaterally Cardiovascular: Normal S1 and S2. Regular rate and rhythm. Respiratory: Lungs are clear to auscultation bilaterally. No wheezing or crackles heard. Abdomen: Soft, nontender, not distended, normal bowel sounds. Skin: Warm to touch, dry, no rashes noted Musculoskeletal: No gross injuries. Able to move all 4 extremities. No pitting edema Neuro: Alert and oriented x3. No focal neuro deficits. No dysarthria, no weakness. Psych: Normal affect and mood Discharge Plan Plan Patient Disposition: HOME (Self Care) Patient condition on transfer: Stable Prescriptions/Referrals Prescriptions/Med Rec: New aspirin 81 mg capsule 81 mg PO QDAY 30 Days Qty: 30 0RF atorvastatin [Lipitor] 40 mg tablet 40 mg PO QDAY 30 Days Qty: 30 0RF Continued hydroxyzine HCl 25 mg tablet 25 mg PO 1XD Patient Comments: TAKE 1 TABLET BY MOUTH EVERY DAY AT BEDTIME NEEDED Held fluoxetine 10 mg capsule 10 mg PO 1XD Hold Instructions: Resume on 03/21/25. See PCP before resuming. Patient Comments: TAKE 1 CAPSULE BY MOUTH EVERY DAY FOR 30 DAYS Referrals: No Primary/Family,Physician [Primary Care Provider] - Patient/Caregiver Discharge Instructions Other Discharge Activity Instructions:: See your PCP before resuming your fluoxetine if you have not been taking it. Continue taking aspirin and Lipitor for 21 days. Follow up with PCP in 1-2 weeks. If you don't have a PCP, please call [facility] at [phone]. Education Materials: Discharge Instructions for Stroke Print Language: Danish Stand Alone Forms: Estrella Award Info., Patient Portal Info Letter Discharge Order Discharge Orders: Discharge (Routine); Ordered 03/07/25 Ordered By: Lisa Horn Quality Discharge Quality Measures VTE prophylaxis
== END 2025-03-07 12:25 | disposition home or self-care (01) | DRG 47 ==
LOC: SERX 21:24 → SERHOLD 21:41 → S2NX 23:14 → S3NX 03-07 01:45
PROVIDERS: Student in an Organized Health Care Education/Training Program; Admitting Provider Student in an Organized Health Care Education/Training Program; Emergency Provider Emergency Medicine; Visit Provider Student in an Organized Health Care Education/Training Program
DX: G45.9 Transient cerebral ischemic attack, unspecified (principal); R07.89 Other chest pain; F41.9 Anxiety disorder, unspecified; R53.1 Weakness; D50.9 Iron deficiency anemia, unspecified; N39.0 Urinary tract infection, site not specified; R29.810 Facial weakness
CPT/HCPCS: 36415; 36600; 70450; 70496; 70498; 70544; 71045; 71275; 74174; 80053; 80307; 80320; 81001; 82803; 83735; 83880; 84100; 84439; 84443; 84484; 85025; 85610; 85730; 87040; 87086; 92610; 93005; 93306; 96365; 99285; A4649; J0696; J1650; J7030; Q9967; A9270; G0480